=== PATIENT | female | born 1990 | race Native Hawaiian/Other Pacific Islander ===

== ENCOUNTER 2018-05-14 21:13 | Emergency (ER) | payer BC ==
[~2018-05-14] VITALS: Ht 175.3 cm; Wt 149.2 kg
[2018-05-14] MEDS ORDERED: CEPHALEXIN500 MG PO (21:36)
[2018-05-14 22:27] VITALS: BP 162/99; TEMP 97.9
== END 2018-05-14 22:28 | disposition home or self-care (01) ==
LOC: ED 21:13
DX: N30.90 Cystitis, unspecified without hematuria (principal)
CPT/HCPCS: 81000; 99282